=== PATIENT | female | born 1995 | race American Indian/Alaskan Native ===

== ENCOUNTER 2018-08-12 16:25 | Emergency (ER) | payer SELFPAY ==
[2018-08-12] MEDS ORDERED: Sodium Chloride 0.9% 1,000 ML IV STA (16:40)
--- NOTE | 2018-08-12 17:19 | ED PDOC ---
Arrival/HPI - General Time Seen by Provider: 08/12/18 16:39 Historian: Patient - History of Present Illness Narrative History of Present Illness (Text): 08/12/18 17:15 23yo female with pmhx of Asthma bib complaint menstrual cramp, nausea/vomiting, diarrhea and pain radiating from her right pelvic area anteriorly to her distal thigh since this afternoon. States her period started today and she usually get the crampy pain with n/v/d. States this is the first time she is also getting the pain radiating from her right pelvic to her distal thigh. 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 Denies fever, chills, trauma, urinary symptoms, any other complaint. Past Medical History - Provider Review Nursing Documentation Reviewed: Yes Family/Social History - Physician Review Nursing Documentation Reviewed: Yes Family/Social History: Unknown Family HX Allergies/Home Meds Allergies/Adverse Reactions: Allergies No Known Allergies Allergy (Verified 08/12/18 16:40) Review of Systems - Physician Review All systems were reviewed & negative as marked: Yes - Review of Systems Constitutional: Normal Eyes: Normal ENT: Normal Respiratory: Normal Cardiovascular: Normal Gastrointestinal: Abdominal Pain, Diarrhea, Nausea, Vomiting. absent: Constipation, Hematochezia, Hematemesis Genitourinary Female: Normal Musculoskeletal: Normal Skin: Normal Neurological: Normal Endocrine: Normal Hemo/Lymphatic: Normal Psychiatric: Normal Physical Exam Vital Signs Reviewed: Yes Temperature: Afebrile Blood Pressure: Normal Pulse: Regular Respiratory Rate: Normal Appearance: Positive for: Well-Appearing, Non-Toxic, Comfortable Pain Distress: None Mental Status: Positive for: Alert and Oriented X 3 - Systems Exam Head: Present: Atraumatic, Normocephalic Pupils: Present: PERRL Extroacular Muscles: Present: EOMI Conjunctiva: Present: Normal Mouth: Present: Moist Mucous Membranes Neck: Present: Normal Range of Motion Respiratory/Chest: Present: Clear to Auscultation, Good Air Exchange. No: Respiratory Distress, Accessory Muscle Use Cardiovascular: Present: Regular Rate and Rhythm, Normal S1, S2. No: Murmurs Abdomen: Present: Tenderness (Pelvic tenderness), Normal Bowel Sounds, Guarding (Voluntary), Other (soft). No: Distention, Peritoneal Signs, Rebound, McBurney's Point Tender, Rovsing's Sign Present Back: Present: Normal Inspection Upper Extremity: Present: Normal Inspection. No: Cyanosis, Edema Lower Extremity: Present: Normal Inspection, Normal ROM, Neurovascularly Intact. No: Edema, Tenderness Neurological: Present: GCS=15, CN II-XII Intact, Speech Normal Skin: Present: Warm, Dry, Normal Color. No: Rashes Psychiatric: Present: Alert, Oriented x 3, Normal Insight, Normal Concentration Medical Decision Making ED Course and Treatment: 08/12/18 18:02 23yo female in ED for crampy menstrual pain and pain radiating down her right leg. She had pelvic tenderness on PE. she was ambulating well and neurologically intact. Labs , 1L NS, Toradol and zofran was ordered. Pt however declined lab work and pain medication. states her pain is much better and requested to be DC home. She was ambulatory and in no distress. Her pain is chronic every month with her period. she was DC home. 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 Ibuprofen 600mg rx was given. - Medication Orders Current Medication Orders: Sodium Chloride (Sodium Chloride 0.9%) 1,000 mls @ 1,000 mls/hr IV .Q1H STA Stop: 08/12/18 17:39 Discontinued Medications Famotidine (Pepcid) 20 mg IVP STAT STA Stop: 08/12/18 16:41 Ketorolac Tromethamine (Toradol) 30 mg IVP STAT STA Stop: 08/12/18 16:41 Ondansetron HCl (Zofran Inj) 4 mg IVP STAT STA Stop: 08/12/18 16:41 Disposition/Present on Arrival - Present on Arrival Any Indicators Present on Arrival: No History of DVT/PE: No History of Uncontrolled Diabetes: No Urinary Catheter: No History of Decub. Ulcer: No History Surgical Site Infection Following: None - Disposition Have Diagnosis and Disposition been Completed?: Yes Diagnosis: Dysmenorrhea, Radiculopathy Disposition: HOME/ ROUTINE Disposition Time: 17:55 Patient Plan: Discharge Patient Problems: Current Active Problems Problem Status Onset Dysmenorrhea Acute Radiculopathy Acute Condition: STABLE Discharge Instructions (ExitCare): Radiculopathy (DC), Menstrual Cramps Additional Instructions: Follow up with your HIGH DENSITY PRESS OPERATOR/PMD Return to ED for any new or worsening symptoms Prescriptions: Ibuprofen [Motrin Tab] 600 mg PO Q6 #15 tab Referrals: Rubi Rose DO [Primary Care Provider] - Follow up with primary
[2018-08-12 17:28] VITALS: BMI 25.0
[2018-08-12 17:50] LABS: URINE BILIRUBIN NEGATIVE (NEGATIVE); URINE BLOOD NEGATIVE (NEGATIVE); URINE GLUCOSE (UA) NEGATIVE (NEGATIVE); URINE LEUKOCYTE ESTERASE NEGATIVE Leu/uL (NEGATIVE); URINE PROTEIN TRACE mg/dL (<30 mg/dL); URINE UROBILINOGEN 0.2 E.U./dL (<1 E.U./dL)
[2018-08-12 17:57] LABS: URINE APPEARANCE CLEAR (CLEAR); URINE COLOR YELLOW (YELLOW)
[2018-08-12 18:04] LABS: URINE EPITHELIAL CELLS 0 - 2 /hpf (0-5); URINE RBC NEGATIVE /hpf (0-2); URINE WBC NEGATIVE /hpf (0-6)
== END 2018-08-12 18:00 | disposition home or self-care (01) ==
LOC: ED 16:25 → MERGE 16:25 → ED 18:00
DX: N94.6 Dysmenorrhea, unspecified (principal); M54.10 Radiculopathy, site unspecified

== ENCOUNTER 2019-04-13 07:47 | Emergency (ER) | payer OTHER ==
[2019-04-13 07:59] VITALS: BMI 26.3
--- NOTE | 2019-04-13 08:16 | ED PDOC ---
Arrival/HPI <Gregg Ring - Last Filed: 04/13/19 09:03> - General Historian: Patient - History of Present Illness Narrative History of Present Illness (Text): 04/13/19 08:13 CC: right knee pain HPI: 23 yo female w/ PMH of asthma and Vit D deficiency presents to ED for evaluation of right knee pain. Patient states the pain has been ongoing for 3 months, located at patellar tendon, radiates superiorly and medially. Patient states she has not taken any pain medications because she prefers not too. Patient states the pain can occur with rest or activity. Denies any trauma to the area. Denies family history of autoimmune conditions. No difficulty in ambul ating or standing for prolonged periods of times. Patient states that she has followed up with her primary doctor, Dr. Boyd, who has attributed this to growing pains. Denies any imaging for the knee. Admits to right knee pain. Denies fevers, chills, chest pain, sob, n/v, constipation or diarrhea and dysuria. Time/Duration: > month Symptom Onset: Gradual Symptom Course: Intermittent Quality: Aching Severity Level: 5 Activities at Onset: Rest, Sleeping Context: Sitting, Standing, Walking <Inessa Pan - Last Filed: 04/13/19 09:11> - General Chief Complaint: Lower Extremity Problem/Injury Time Seen by Provider: 04/13/19 07:48 Past Medical History - Provider Review Nursing Documentation Reviewed: Yes Primary Care Provider: Rubi Rose - Infectious Disease Hx of Infectious Diseases: None - Cardiac Hx Cardiac Disorders: No - Pulmonary Hx Respiratory Disorders: Yes Hx Asthma: Yes - Neurological Hx Neurological Disorder: No - HEENT Hx HEENT Disorder: No - Renal Hx Renal Disorder: No - Endocrine/Metabolic Hx Endocrine Disorders: No - Hematological/Oncological Hx Blood Disorders: No - Integumentary Hx Dermatological Disorder: No - Musculoskeletal/Rheumatological Hx Musculoskeletal Disorders: No - Gastrointestinal Hx Gastrointestinal Disorders: No - Genitourinary/Gynecological Hx Genitourinary Disorders: No - Psychiatric Hx Psychophysiologic Disorder: No Hx Substance Use: Yes (marijuana occassionally) - Anesthesia Hx Anesthesia: No <Inessa Pan - Last Filed: 04/13/19 09:11> Family/Social History - Physician Review Nursing Documentation Reviewed: Yes Family/Social History: No Known Family HX Smoking Status: Never Smoked Hx Alcohol Use: No Hx Substance Use: Yes (marijuana occassionally) Substance used: marijuana <Inessa Pan - Last Filed: 04/13/19 09:11> Allergies/Home Meds <Gregg Ring - Last Filed: 04/13/19 09:03> <Inessa Pan - Last Filed: 04/13/19 09:11> Allergies/Adverse Reactions: Allergies Penicillins Allergy (Verified 04/13/19 08:06) RASH Review of Systems - Physician Review All systems were reviewed & negative as marked: Yes <Gregg Ring - Last Filed: 04/13/19 09:03> - Review of Systems Constitutional: Normal. absent: Fatigue, Weight Change, Fevers, Night Sweats Eyes: Normal. absent: Vision Changes, Photophobia ENT: Normal. absent: Hearing Changes, Tinnitus, TMJ Pain Respiratory: Normal. absent: SOB, Cough, Sputum, Wheezing Cardiovascular: Normal. absent: Chest Pain, Palpitations, Edema, Calf Pain Gastrointestinal: Normal. absent: Abdominal Pain, Stool Changes, Constipation, Diarrhea, Nausea, Vomiting Genitourinary Female: Normal. absent: Dysuria, Frequency, Hematuria, Urine Outp ut Changes Musculoskeletal: Arthralgias (right knee pain). absent: Back Pain, Neck Pain, Joint Swelling, Myalgias Skin: Normal. absent: Rash, Pruritis, Skin Lesions Neurological: Normal. absent: Headache, Dizziness, Focal Weakness Endocrine: Normal. absent: Diaphoresis, Polyuria, Polydipsia Hemo/Lymphatic: Normal. absent: Adenopathy, Easy Bleeding Psychiatric: Normal. absent: Anxiety, Depression <Inessa Pan - Last Filed: 04/13/19 09:11> Physical Exam Vital Signs Temp Pulse Resp BP Pulse Ox 04/13/19 07:59 98.1 F 76 18 137/96 H 97 <Gregg Ring - Last Filed: 04/13/19 09:03> Vital Signs Reviewed: Yes Vital Signs Temp Pulse Resp BP Pulse Ox 04/13/19 07:59 98.1 F 76 18 137/96 H 97 Temperature: Afebrile Blood Pressure: Hypertensive Pulse: Regular Respiratory Rate: Normal Appearance: Positive for: Well-Appearing, Non-Toxic, Comfortable Pain Distress: None Mental Status: Positive for: Alert and Oriented X 3 - Systems Exam Head: Present: Atraumatic, Normocephalic Pupils: Present: PERRL Extroacular Muscles: Present: EOMI Conjunctiva: Present: Normal Mouth: Present: Moist Mucous Membranes Neck: Present: Normal Range of Motion. No: Meningeal Signs, JVD Respiratory/Chest: Present: Clear to Auscultation, Good Air Exchange. No: Respiratory Distress, Accessory Muscle Use Cardiovascular: Present: Regular Rate and Rhythm, Normal S1, S2. No: Murmurs, Irregular Rhythm, Peripheal Pulses Present Abdomen: Present: Normal Bowel Sounds. No: Tenderness, Distention, Peritoneal Signs, Rebound, Guarding Upper Extremity: Present: Normal Inspection. No: Cyanosis, Edema, Tenderness, Swelling, Erythema Lower Extremity: Present: Normal Inspection, NORMAL PULSES, Normal ROM, Tenderness (minimal tenderness with deep palpation at patellar tendon site). No: Edema, CALF TENDERNESS, Swelling Neurological: Present: GCS=15, CN II-XII Intact, Speech Normal, Motor Func Grossly Intact Skin: Present: Warm, Dry, Normal Color. No: Rashes Psychiatric: Present: Alert, Oriented x 3, Normal Insight, Normal Concentration <Inessa Pan - Last Filed: 04/13/19 09:11> Medical Decision Making ED Course and Treatment: 04/13/19 08:22 Seen and examined with the resident. Our history and physical exam reveals a young woman complaining of a several month history of right knee pain. She states that it sometimes wakes her up at night. She has been seen by her PMD, but is no better. There has been no imaging done. She is requesting x-rays. There is tenderness specifically on the patellar tendon insertion. - RAD Interpretation Radiology Orders: 04/13/19 08:11 KNEE W PATELLA RIGHT 3 VIEW [RAD] Stat Knee 3 view shows no fracture or dislocation. 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 Ulcer: No - Disposition Have Diagnosis and Disposition been Completed?: Yes Disposition Time: 09:03 Patient Plan: Discharge <Gregg Ring - Last Filed: 04/13/19 09:03> - Present on Arrival Any Indicators Present on Arrival: No History of DVT/PE: No History of Uncontrolled Diabetes: No Urinary Catheter: No History of Decub. Ulcer: No History Surgical Site Infection Following: None - Disposition Have Diagnosis and Disposition been Completed?: Yes Patient Plan: Discharge <Inessa Pan - Last Filed: 04/13/19 09:11> - Disposition Diagnosis: Tendinitis Discharge Instructions (ExitCare): Tendonitis Additional Instructions: Moist heat. Follow-up with PMD and orthopedist. Follow-up in ER as needed. Prescriptions: Naproxen [Naprosyn] 500 mg PO BID #14 tab Forms: [employer] ([place])
[2019-04-13 09:17] VITALS: BP 130/74; PULSE 80; RESP 19; TEMP 98; O2SAT 99
--- NOTE | 2019-04-13 14:14 | RAD ---
Date of service: 04/13/2019 PROCEDURE: Right Knee Radiographs. HISTORY: Knee Pain. No history of recent/ related trauma provided. COMPARISON: None. TECHNIQUE: 2 views obtained. FINDINGS: BONES: Normal. No fracture. JOINTS: Normal. No osteoarthritis. JOINT EFFUSION: None. OTHER FINDINGS: None. IMPRESSION: Normal radiographs of the right knee.
== END 2019-04-13 09:17 | disposition home or self-care (01) ==
LOC: ED 07:47
DX: M77.9 Enthesopathy, unspecified (principal)
CPT/HCPCS: 73562; 81025; 96372; 99283; J1885